=== PATIENT | male | born 1960 | race Caucasian/White ===

== ENCOUNTER 2023-12-24 02:31 | Emergency (ER) | payer OTHER ==
[~2023-12-24] VITALS: Ht 180.3 cm; Wt 102.0 kg
[2023-12-24] MEDS ORDERED: ETODOLAC400 MG PO (02:42)
[2023-12-24] MEDS ORDERED: LIPITOR10 MG PO (02:42)
[2023-12-24] MEDS ORDERED: HYDROCHLOROTH12.5 M1 PO (02:43)
[2023-12-24] MEDS ORDERED: ATENOLOL25 MG PO (02:43)
[2023-12-24] MEDS ORDERED: PSEUDOEPHEDRINE60 MG PO (02:43)
[2023-12-24] MEDS ORDERED: CLARITIN10 M2 PO (02:44)
[2023-12-24] MEDS ORDERED: FAMOTIDINE 20 MG/ 2 ML VIAL IV ONE ×2 (02:45→03:30)
[2023-12-24] MEDS ORDERED: ondansetron HCL 4 MG/2 ML VIAL IV ONE (02:45)
[2023-12-24] MEDS ORDERED: LACTATED RINGER'S 1,000 ML IV ONE (02:45)
[2023-12-24] MEDS ORDERED: fentaNYL citrate 100 MCG/2 ML VIAL IV ONE (02:45)
[2023-12-24] MEDS ORDERED: KETOROLAC TROMETHAMINE 15 MG/ML VIAL IV ONE (02:45)
[2023-12-24 02:58] LABS: BASOPHILS 0.2 % (0-2); HEMATOCRIT 48.8 % (35.0-50.0); HEMOGLOBIN 16.4 g/dL (12.0-18.0); LYMPHOCYTES 10.2 % (24-44); MCH 30.4 (27-36); MCHC 33.7 g/dl (30-36); MCV 90.3 fl (81-99); MONOCYTES 4.3 % (0-12); NEUTROPHILS 85.3 % (39-80); PLATELET COUNT 322 K/uL (140-440); RDW 14.6 (10.5-15.0)
[2023-12-24 03:12] LABS: ALBUMIN 3.8 g/dL (3.4-5.0); ALBUMIN/GLOBULIN RATIO 0.95 (1.1-2.4); ANION GAP 12.7 (7-21); BILIRUBIN, TOTAL 0.4 ng/dL (0.2-1.0); BUN/CREATININE RATIO 16.03 (6.0-28.6); CALCIUM 9.1 mg/dL (8.5-10.1); CREATININE, SERUM 1.31 mg/dL (0.70-1.30); POTASSIUM 3.7 mmol/L (3.5-5.1); PROTEIN, TOTAL 7.8 g/dL (6.4-8.2)
[2023-12-24] MEDS ORDERED: TAMSULOSIN HCL 0.4 MG CAP PO ONE (03:45)
[2023-12-24] MEDS ORDERED: ONDANSETRON ODT4 MG PO (03:48)
[2023-12-24] MEDS ORDERED: FLOMAX0.4 MG PO (03:48)
[2023-12-24] MEDS ORDERED: HYDROCODON-ACE1 EA10 PO (03:48)
[2023-12-24 04:02] LABS: BILIRUBIN, URINE POSITIVE (negative); BLOOD/HGB, URINE LARGE (Negative); KETONE, URINE TRACE (Negative); LEUK ESTERASE, URINE NEGATIVE (negative); NITRITE, URINE NEGATIVE (negative); PH, URINE 5.5 (5-7)
[2023-12-24 04:07] LABS: EPITHELIAL CELLS, URINE SQUAMOUS 1+ /lpf (0-1+); RED BLOOD CELLS, URINE >50 /hpf (0-5); WHITE BLOOD CELLS, URINE 0-1 /HPF (0-5)
[2023-12-24 04:09] LABS: CRYSTALS, URINE AMORPHOUS URATES 3+ (0-1+)
[2023-12-24 04:10] LABS: BACTERIA, URINE RARE /hpf (negative); CASTS, URINE NONE SEEN \\lpf; COLLECTION TYPE, URINE CLEAN CATCH; REFLEX CULTURE, URINE No (No)
[2023-12-24] MEDS ORDERED: HYDROCODONE/APAP 10/325 1 TAB PO ONE (04:15)
[2023-12-24] MEDS ORDERED: HYDROCODONE BIT/ACETAMINOPHEN 5/325 MG 1 TAB HOME.PACK PO ONE (04:30)
[2023-12-24 05:00] VITALS: BP 149/93
== END 2023-12-24 05:00 | disposition home or self-care (01) ==
LOC: ED 02:31
PROVIDERS: Internal Medicine
DX: N13.2 Hydronephrosis with renal and ureteral calculous obstruction (principal); K80.20 Calculus of gallbladder without cholecystitis without obstruction; I10 Essential (primary) hypertension; Z79.899 Other long term (current) drug therapy
CPT/HCPCS: 36415; 74176; 80053; 81001; 83690; 85025; A9270; J1885; J2405; J3010; J7121